=== PATIENT | female | born 1990 | race Caucasian/White ===

== ENCOUNTER 2020-05-14 17:24 | Emergency (ER) | payer SELFPAY ==
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
[2020-05-14] MEDS ORDERED: Acetaminophen 500 MG Tab PO ONE (19:08)
[2020-05-14] MEDS ORDERED: Ketorolac 30 MG/ML SDV IM ONE (19:08)
== END 2020-05-14 19:19 | disposition home or self-care (01) ==
LOC: JP.ED 17:24
DX: M26.602 Left temporomandibular joint disorder, unspecified (principal); J45.909 Unspecified asthma, uncomplicated; Z79.899 Other long term (current) drug therapy; Z88.5 Allergy status to narcotic agent
CPT/HCPCS: 96372; 99283; A9270; J1885